=== PATIENT | male | born 1985 | race Caucasian/White ===

== ENCOUNTER 2018-02-14 11:17 | Emergency (ER) | payer BC, OTHER ==
[~2018-02-14] VITALS: Ht 172.7 cm; Wt 111.1 kg
[2018-02-14 11:21] VITALS: BP_SYST 165
[2018-02-14] MEDS: KETOROLAC TROMETHAMINE 30 MG VIAL IVP ONE (11:46)
[2018-02-14] MEDS: NACL 0.9% 1,000 ML IV ONE (11:47)
[2018-02-14] MEDS: MAG HYDROX/AL HYDROX/SIMETH 30 ML, LIDOCAINE VISCOUS 2% 15ML (PO) 10 ML, BELLADONNA ALK... PO ONE ×3 (12:28)
[2018-02-14 12:50] VITALS: BP_SYST 140
== END 2018-02-14 12:50 | disposition home or self-care (01) ==
LOC: SED 11:17
DX: J11.1 Influenza due to unidentified influenza virus with other respiratory manifestations (principal); R03.0 Elevated blood-pressure reading, without diagnosis of hypertension; Z90.89 Acquired absence of other organs
CPT/HCPCS: 96361; 96374; 99284; J1885; J2001; J7030

== ENCOUNTER 2023-09-14 17:57 | Emergency (ER) | payer BC ==
[~2023-09-14] VITALS: Ht 167.6 cm; Wt 74.8 kg
[2023-09-14 18:33] VITALS: BP_SYST 160; PULSE 85; RESP 20; TEMP 98.3; O2SAT 98
[2023-09-14 21:17] LABS: BILIRUBIN,URINE NEGATIVE (NEGATIVE); BLOOD, URINE NEGATIVE (NEGATIVE); CLARITY/URINE CLEAR (CLEAR); COLOR,URINE YELLOW (YELLOW); GLUCOSE,URINE NEGATIVE (NEGATIVE); KETONES,URINE NEGATIVE (NEGATIVE); LEUKOCYTE ESTERASE ,URINE NEGATIVE (NEGATIVE); NITRITE, URINE NEGATIVE (NEGATIVE); PH,URINE 6.5 (5.0-8.0); PROTEIN URINE NEGATIVE (NEGATIVE); UROBILINOGEN,URINE 0.2 (0.2-1.0)
[2023-09-14] MEDS ORDERED: cefTRIAXone 1 GM in LIDOCAINE 1%, 20 ML MDV 2.1 ML IM ONE (22:30)
[2023-09-14] MEDS ORDERED: KETOROLAC TROMETHAMINE 60 MG/2 ML VIAL IM ONE (22:30)
[2023-09-14 23:05] VITALS: BP_SYST 155; PULSE 83; RESP 18; TEMP 98.2; O2SAT 98
[2023-09-14] MEDS ORDERED: CIPR500T5 PO (23:06)
[2023-09-14] MEDS ORDERED: NAPR-690 PO (23:06)
== END 2023-09-14 23:05 | disposition home or self-care (01) ==
LOC: SED 17:57
DX: N45.1 Epididymitis (principal)
CPT/HCPCS: 99285; 81001; 76870; 96372; 81003; J0696; J1885; J2001

== ENCOUNTER 2024-05-13 06:05 | Day surgery (SDC) | payer BC ==
[~2024-05-13] VITALS: Ht 170.2 cm; Wt 140.6 kg
[~2024-05-13 06:05] MED LIST: CIPR500T5 PO; NAPR-690 PO
[2024-05-13] MEDS ORDERED: CEFAZOLIN SOD 2 GM in D5W 50 ML IV ONE (07:00)
[2024-05-13 07:16] VITALS: O2SAT 99
[2024-05-13] MEDS ORDERED: ceFAZolin SODIUM 1 GM VIAL ONE (07:25)
[2024-05-13] MEDS ORDERED: ACETAMINOPHEN I.V. 1000 MG 100 ML IV ONE (08:08)
[2024-05-13] MEDS ORDERED: D5/0.45 NS 1,000 ML IV SCH (08:45)
[2024-05-13] MEDS ORDERED: KETOROLAC TROMETHAMINE 30 MG VIAL IVP PRN (09:00)
[2024-05-13] MEDS ORDERED: HYDROmorphone 1 MG/ML INJ. CARTRIDGE IVP PRN (09:00)
[2024-05-13] MEDS ORDERED: ONDANSETRON HCL 4 MG/2 ML VIAL IVP PRN (09:00)
[2024-05-13] MEDS ORDERED: LR 1,000 ML IV SCH (09:00)
[2024-05-13] MEDS ORDERED: HYDROmorphone 2 MG/ML VIAL IVP PRN (09:00)
[2024-05-13 14:19] VITALS: BP_SYST 148; PULSE 79; RESP 16
== END 2024-05-13 10:40 | disposition home or self-care (01) ==
LOC: SMU 06:05 → SDS 06:05
PROVIDERS: ATTEND Colon & Rectal Surgery
DX: L05.01 Pilonidal cyst with abscess (principal); E66.01 Morbid (severe) obesity due to excess calories; Z68.42 Body mass index [BMI] 45.0-49.9, adult; Z90.89 Acquired absence of other organs; Z80.6 Family history of leukemia; Z82.61 Family history of arthritis
CPT/HCPCS: 87081; 88304; J0131; J0330; J0690; J1885; J2405; J2704; J2765; J3490; J7060